=== PATIENT | male | born 1990 | race Two or more races ===

== ENCOUNTER 2023-04-26 19:11 | Emergency (ER) | payer SELFPAY ==
[~2023-04-26] VITALS: Ht 172.7 cm; Wt 110.0 kg
[2023-04-26 20:03] LABS: Urine Bacteria NONE SEEN /hpf (None Seen); Urine Blood Negative /uL (Negative); Urine Mucus FEW (None Seen); Urine Specific Gravity 1.017 (1.001-1.035); Urine WBC <1 /hpf (0 - 3)
[2023-04-26 20:15] LABS: Basophils # (auto) 0.1 10 ^3/uL (0-0.2); Eosinophils # (auto) 0.2 10 ^3/uL (0-0.8); Eosinophils % (auto) 2.7 % (0.0-7.0); Hematocrit 47.1 % (41.0-53.0); Lymphocytes # (auto) 2.9 10 ^3/uL (0.4-5.4); Lymphocytes % (auto) 36.7 % (10.0-50.0); Mean Corpuscular Hemoglobin 29.2 pg (28.0-32.0); Mean Corpuscular Volume 85.8 fL (80.0-100.0); Monocytes # (auto) 0.6 10 ^3/uL (0-1.3); Monocytes % (auto) 8.1 % (0.0-12.0); Neutrophils % (auto) 51.5 % (37.0-80.0); Nucleated Red Blood Cells % 0.3 %; Red Blood Cells 5.49 10^6/uL (4.5-5.90); Red Cell Distribution Width 12.4 % (11.8-14.3); White Blood Cell 7.8 10^3/uL (4.4-10.8)
[2023-04-26 20:26] LABS: Albumin 3.9 g/dL (3.4-5.0); Calcium 8.9 mg/dL (8.5-10.1); Potassium 3.8 mmol/L (3.5-5.1)
[2023-04-26 20:29] LABS: Bilirubin, Total 0.3 mg/dL (0.2-1.0); Total Protein 7.5 g/dL (6.4-8.2)
[2023-04-26 21:22] LABS: BUN/Creatinine Ratio 16.1 (10.0-20.0)
[2023-04-26] MEDS ORDERED: DICY10CA PO (22:38)
[2023-04-26 23:25] VITALS: BP 107/73
== END 2023-04-26 23:29 | disposition home or self-care (01) ==
LOC: ER 19:14
DX: R10.31 Right lower quadrant pain (principal); R19.7 Diarrhea, unspecified; R10.33 Periumbilical pain; R11.0 Nausea
CPT/HCPCS: 36415; 80053; 81001; 83690; 85025